=== PATIENT | female | born 1995 | race Asian ===

== ENCOUNTER 2019-08-31 20:59 | Emergency (ER) | payer OTHER ==
--- NOTE | 2019-08-31 21:07 | UC ---
Knee Pain HPI - HPI Summary HPI Summary: 23-year-old female presenting with left knee pain for the last half hour after she states she was playing basketball and "felt her kneecap pop out of place" and then fell to the ground. States she did not see the kneecap out of place but believes it was. States she has not been able to bear weight since. Notes stiffness and anterior pain. Denies radiating pain. Denies bruising. Denies decreased sensation. Denies numbness and tingling. Denies anything like this in past. Denies prior knee injury. - History of Current Complaint Stated Complaint: LEFT KNEE INJURY Hx Obtained From: Patient - Allergies/Home Medications Allergies/Adverse Reactions: Allergies Allergy/AdvReac Type Severity Reaction Status Date / Time No Known Allergies Allergy Verified 08/31/19 21:18 Home Medications: Home Medications Etonogestrel [Nexplanon] 1 dose SUBCUT ONCE 08/31/19 [History Confirmed 08/31/19 ] NK [No Home Medications Reported] 08/31/19 [History Confirmed 08/31/19] PMH/Surg Hx/FS Hx/Imm Hx - Family History Known Family History: Positive: Non-Contributory - Social History Alcohol Use: Occasionally Substance Use Type: None Smoking Status (MU): Never Smoked Tobacco Review of Systems All Other Systems Reviewed And Are Negative: No Constitutional: Positive: Negative Skin: Positive: Negative Respiratory: Positive: Negative Cardiovascular: Positive: Negative Musculoskeletal: Positive: Arthralgia - L anterior knee, Decreased ROM, Edema - L knee Neurological: Negative: Paresthesia, Numbness Physical Exam - Summary Physical Exam Summary: Vital Signs Reviewed: Yes A+Ox3, no distress Eyes: Conjunctiva Clear ENT: Hearing grossly normal neck: supple Respiratory: Positive: No respiratory distress, No accessory muscle use Cardiovascular: skin color reflect adequate perfusion Musculoskeletal Exam: +TTP of L anterior knee, +edema of anterior L knee, decreased flexion/extension of L knee d/t pain, patella in place, sensation grossly intact, DP/PT pulses 2+ Neurological: Positive: Alert Psychological: Positive: Normal Response To Family Skin: Positive: no rash, no ecchymosis Vital Signs: Vital Signs (72 hours) 08/31/19 21:19 Temperature 99.1 F Pulse Rate 112 Respiratory 14 Rate Blood Pressure 139/71 (mmHg) O2 Sat by Pulse 98 Oximetry Diagnostics - Radiology L knee Radiology Interpretation Completed By: ED Physician - neg fx Knee Pain Course/Dx - Course Course Of Treatment: Discussed initial negative read of radiographs of patient. Patient received knee immobilizer and crutches placed on likely patellar dislocation and current knee pain. Instructed to continue with rest, ice, elevation, and OTC analgesics. Instructed to follow-up with orthopedics for further evaluation and treatment. Patient voiced understanding and agreed with the treatment plan. - Differential Dx/Diagnosis Differential Diagnosis/HQI/PQRI: Dislocation, Fracture (Closed), Sprain, Strain Provider Diagnosis: Lateral dislocation of left patella, initial encounter Discharge ED - Sign-Out/Discharge Documenting (check all that apply): Patient Departure All imaging exams completed and their final reports reviewed: No - Discharge Plan Condition: Stable Disposition: HOME Patient Education Materials: Knee Pain (ED), Patellar Dislocation (ED) Referrals: Jose Klein MD [Medical Doctor] - As Soon As Possible Additional Instructions: As discussed, your radiograph was reviewed by the provider that treated you tonight. It will be read by a radiologist tomorrow morning. If there is a finding other than that discussed with you today, you will receive a call from a care provider. Rest, ice, and elevate the knee. Use the knee immobilzer and crutches during the day until you receive follow up. Use over the counter pain medications as directed for pain relief. Follow up with orthopedics for further evaluation and treatment. - Billing Disposition and Condition Condition: STABLE Disposition: Home - Attestation Statements Provider Attestation: This patient was not seen by me. I was available for consult. Chart reviewed. CINDY
[2019-08-31 21:21] VITALS: BP 139/71
--- NOTE | 2019-09-01 10:28 | UC ---
- Progress Note Progress Note: XR wet read correct Course/Dx - Diagnoses Provider Diagnoses: Lateral dislocation of left patella, initial encounter Discharge ED - Sign-Out/Discharge Documenting (check all that apply): Post-Discharge Follow Up All imaging exams completed and their final reports reviewed: Yes - Discharge Plan Condition: Stable Disposition: HOME Patient Education Materials: Knee Pain (ED), Patellar Dislocation (ED) Referrals: Jose Klein MD [Medical Doctor] - As Soon As Possible Additional Instructions: As discussed, your radiograph was reviewed by the provider that treated you tonight. It will be read by a radiologist tomorrow morning. If there is a finding other than that discussed with you today, you will receive a call from a care provider. Rest, ice, and elevate the knee. Use the knee immobilzer and crutches during the day until you receive follow up. Use over the counter pain medications as directed for pain relief. Follow up with orthopedics for further evaluation and treatment. - Billing Disposition and Condition Condition: STABLE Disposition: Home
== END 2019-08-31 22:05 | disposition home or self-care (01) ==
LOC: UCEAST 20:59
DX: S83.015A Lateral dislocation of left patella, initial encounter (principal); W18.30XA Fall on same level, unspecified, initial encounter; Y93.67 Activity, basketball; Y92.9 Unspecified place or not applicable
CPT/HCPCS: 99202; G0463